=== PATIENT | female | born 1950 ===

== ENCOUNTER 2024-05-17 09:30 | Outpatient (REF) | payer MEDICARE, SELFPAY ==
--- OUTSIDE RECORDS SUMMARY | 2024-05-18 12:35 | XMS_ITS | Clinical Summary ---
Author Organization [facility] Address [address] [place] [address] Care Team Providers Care Converting Supervisor Name Role Phone Washington-Janice Sanon MD Primary Care Provider Allergies No known active allergies Medications Medication Sig Dispensed Refills Start Date End Date Status albuterol (PROVENTIL HFA;VENTOLIN HFA) 108 (90 Base) MCG/ACT inhaler Inhale 2 puffs into the lungs. 0 05/29/2017 Active ALPRAZolam (XANAX) 0.5 MG tablet Take 0.5 mg by mouth 3 (three) times a day as needed. 2 09/08/2018 Active ALPRAZolam (XANAX) 0.5 MG tablet Take 0.25-0.5 mg by mouth. 0 01/03/2013 Active aspirin 81 MG EC tablet Take 81 mg by mouth. 0 Active FLUoxetine (PROzac) 40 MG capsule TAKE ONE CAPSULE BY MOUTH EVERY MORNING 2 09/07/2018 Active furosemide (LASIX) 40 MG tablet Take 40 mg by mouth daily. 1 08/23/2018 Active furosemide (LASIX) 40 MG tablet TAKE 1 TABLET BY MOUTH EVERY DAY 0 08/23/2018 Active insulin NPH (HumuLIN N,NovoLIN N) injection 100 units/mL Inject 26 Units under the skin. 0 Active lisinopril-hydroCHLORO thiazide (PRINZIDE,ZESTORETIC) tablet 10-12.5 mg Take 1 tablet by mouth daily. 1 08/23/2018 Active lovastatin (MEVACOR) 20 MG tablet Take 20 mg by mouth every night at bedtime. 1 09/05/2018 Active metFORMIN (GLUCOPHAGE) tablet 1000 mg TAKE 1 TABLET BY MOUTH TWICE DAILY WITH FOOD 0 05/23/2018 Active Social History Tobacco Use Types Packs/Day Years Used Date Smoking Tobacco: Never Assessed Sex and Gender Information Value Date Recorded Sex Assigned at Not on file Gender Identity Not on file Sexual Orientation Not on file Last Filed Vital Signs Vital Sign Reading Time Taken Comments Blood Pressure - - Pulse - - Temperature - - Respiratory Rate - - Oxygen Saturation - - Inhaled Oxygen Concentration - - Weight 108.9 kg (240 lb) 09/14/2018 2:11 PM EDT Height 157.5 cm (5' 2 ) 09/14/2018 2:11 PM EDT Body Mass Index 43.9 09/14/2018 2:11 PM EDT Plan of Treatment Health Maintenance Due Date Last Done Comments Hepatitis C Screening 1950 COVID-19 Vaccine (#1) 1950 Depression Screening 1961 BMI Counseling 1967 Preventative Health Evaluation 1967 Colon Cancer Screening (Colonoscopy) 1994 Shingrix-Zoster Vaccine (1 of 2) 1999 Fall Risk Assessment 2014 Osteoporosis Screening (DEXA Scan) 2014 DTap / Tdap / Td (2 - Td or Tdap) 08/05/2020 08/05/2010 Influenza Vaccine (#1) 2023 8, 01/12/2016, 12/08/2014, Additional history exists RSV Adult > 60+ Yrs or (1 - 1-dose 75+ series) 01/11/2024 Pneumococcal Vaccine Completed 07/08/2017, 04/23/2015, 04/22/2012 Hepatitis B Vaccines Aged Out No long er eligible based on patient's age to complete this topic RSV Ped < 20 months Aged Out No longe r eligible based on patient's age to complete this topic Care Teams Converting Supervisor Relationship Specialty Start Date End Date [place]-Janice Sanon MD PCP - General Internal Medicine 08/10/17
--- OUTSIDE RECORDS SUMMARY | 2024-05-18 12:35 | XMS_ITS | Clinical Summary ---
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 OTHER SURGICAL HISTORY 08/12/2010 PROCEDURE: HISTORY OTHER; COMMENT: pubovaginal sling with transvaginal tape OTHER SURGICAL HISTORY 1994 PROCEDURE: HISTORY OTHER; COMMENT: left thumb tendonitis surgery COLONOSCOPY 10/24/12 PROCEDURE: HISTORICAL COLONOSCOPY; COMMENT: hemorrhoids; repeat in ten yrs HIP ARTHROPLASTY 11/03/12 PROCEDURE: HISTORICAL HIP REPLACEMENT; COMMENT: right HIP ARTHROPLASTY 01/19/13 PROCEDURE: HISTORICAL HIP REPLACEMENT; COMMENT: left Medical History Medical History Date Comments Mild aortic stenosis 11/27/2013 DX:Mild aor tic stenosis Osteopenia 09/26/2018 DX:Osteopenia Diabetes mellitus with catar act ([facility]) 04/13/2019 DX:Diabetes mellitus with ca taract ([facility]) Diabetes mellitus with prote inuria ([facility]) 11/27/2019 DX:Diabetes mellitus with pr oteinuria ([facility]) Family History Medical History Relation Name Comments Arthritis Brother Diabetes Father Hypertension Mother Alcohol/Drug Uncle Breast cancer Neg Hx Relation Name Status Comments Brother Father Mother Uncle Social History Tobacco Use Types Packs/Day Years Used Date Smoking Tobacco: Never Smokeless Tobacco: Never Alcohol Use Standard Drinks/Week Comments No 0 (1 standard drink = 0.6 oz pur e alcohol) Sex and Gender Information Value Date Recorded Sex Assigned at Not on file Gender Identity Not on file Sexual Orientation Not on file Obstetrics History Last Filed Vital Signs Vital Sign Reading Time Taken Comments Blood Pressure 132/74 04/22/2023 2:05 PM EST Pulse 66 11/20/2022 8:22 AM EDT Temperature - - Respiratory Rate - - Oxygen Saturation - - Inhaled Oxygen Concentration - - Weight 97.5 kg (215 lb) 04/22/2023 2:05 PM EST Height 154.9 cm (5' 1 ) 04/22/2023 2:05 PM EST Body Mass Index 40.62 04/22/2023 2:05 PM EST Plan of Treatment Health Maintenance Due Date Last Done Comments Diabetes: Annual GFR (Glomerular Filtration Rate) 1950 Diabetes: Annual Foot Exam 1959 Diabetes: Annual Retina Eye Exam 1959 Zoster Vaccines (2 of 3) 10/14/2010 08/19/2010 DTaP,Tdap,and Td Vaccines (2 - Td or Tdap) 08/05/2020 08/05/2010 Cholesterol Screening (Lipid Panel) 03/28/2022 Colorectal Cancer Screening: Colonoscopy 03/28/2022 Depression Screening 03/28/2022 Falls Risk Assessment 03/28/2022 Hepatitis C Screening 03/28/2022 Social Influencers of Health Screening 03/28/2022 Diabetes: Annual Urine Albumin-Creatinine Ratio (uACR) 04/01/2022 Diabetes: Blood Sugar Control Test (HGBA1C) 04/01/2022 Hypertension/CHF/CAD Annual BMP Blood Test 04/01/2022 COVID-19 Vaccine ( season) 2023 07/29/2020, 07/08/2020 Influenza Vaccine (#1) 2023 , 12/31/2021, 12/03/2020, Additional history exists RSV Immunization Patients 60+ Years Old (1 - 1-dose 75+ series) 01/11/2024 Osteoporosis Screening (Bone Density Screening) 09/22/2028 09/22/2018 Pneumococcal Vaccine: 65+ Years Completed 07/08/2017, 04/23/2015, 04/22/2012 Breast Cancer Screening Discontinued 09/22/2018 HIB Vaccines Aged Out No longer eligi ble based on patient's age to complete this topic HPV Vaccines Aged Out No longer eligi ble based on patient's age to complete this topic Hepatitis A Vaccines Aged Out No long er eligible based on patient's age to complete this topic Hepatitis B Vaccines Aged Out No long er eligible based on patient's age to complete this topic IPV Vaccines Aged Out No longer eligi ble based on patient's age to complete this topic MMR Vaccines Aged Out No longer eligi ble based on patient's age to complete this topic Meningococcal ACWY Vaccine Aged Out N o longer eligible based on patient's age to complete this topic RSV Immunization Patients Under 20 months Aged Out No longer eligible based on patient's age to complete this topic Varicella Vaccines Aged Out No longer eligible based on patient's age to complete this topic Procedures Procedure Name Priority Date/Time Associated Diagnosis Comments [facility] DEXA AXIAL SKELETON Routine 09/22/2018 2:22 PM EDT Encounter for screening for osteoporosis [facility] SCREENING DIGITAL Routine 09/22/2018 11:45 AM EDT Encounter for screening mammogram for malignant neoplasm of breast from Last 3 Months or Most Recently Relevant to Health Maintenance Results * [facility] DEXA AXIAL SKELETON (09/22/2018 2:22 PM EDT) Anatomical Region Laterality Modality Mammography 09/22/2018 10:3 0 AM EDT Narrative 09/22/2018 2:22 PM EDT [facility] Diagnostic Imaging Department [address] [place] [address] Patient: ??JORGE A GOODEN ?/Age/Sex: 1950 - 68 - F Unit#: ??[id number] ? Location/Status: ??SPDIMAM/REG CLI ? Mnemonic/Ordering Site: ??MAMDEXAAX/SPMAM Ordering Physician: ??FANTA-GEOVANNI MONTAGUE MD [facility]ene Dexa Axial Skeleton - 09/22/18 - 1158 HISTORY: ??The patient is a 68-year-old postmenopausal female with clinical concern for metabolic bone disease. The patient has undergone previous bilateral hip replacement surgery. FINDINGS: ??Dual energy x-ray absorptiometry of the lumbar spine and femurs is performed. The mean bone mineral density at L1-2 is 0.960 gm/cm2 which is 82% of that of young normals and 87% of that of age matched controls. This yields a T- score of -1.7 and a Z-score of -1.2 which is diagnostic of osteopenia. IMPRESSION: Osteopenia. Code 93639 Dictating Physician: ??LILA MONTALVO MD Electronically Signed by: ??LILA MONTALVO MD Dic Date/Time: ??09/22/18 1421 Sign date/Time: ??09/22/18 1422 Procedure Note Lila Montalvo - 04/07/2022 [facility] Diagnostic Imaging Department [address] [place] [address] Patient: SANJAYLAURENJORGE A./Age/Sex: 1950 - 68 - F Unit#: [id number] [facility] Mnemonic/Ordering Site: [facility] Ordering Physician: GEOVANNI ARIAS MD [facility] Dexa Axial Skeleton - 09/22/18 - 1158 HISTORY: The patient is a 68-year-old postmenopausal female withclinical concern for metabolic bone disease. The patient has undergone previousbilateral hip replacement surgery. FINDINGS: Dual energy x-ray absorptiometry of the lumbar spine and femursis performed. The mean bone mineral density at L1-2 is 0.960 gm/cm2 which is82% of that of young normals and 87% of that of age matched controls. This yieldsa T- score of -1.7 and a Z-score of -1.2 which is diagnostic of osteopenia. IMPRESSION: Osteopenia. Code 28552 Dictating Physician: LILA MONTALVO MD Electronically Signed by: LILA MONTALVO MD Dic Date/Time: 09/22/18 1421 Sign date/Time: 09/22/181421 Geovanni Arias MD IMG BI PROCE MANINDERES * [facility] SCREENING DIGITAL (09/22/2018 11:45 AM EDT) Anatomical Region Laterality Modality Mammography 09/22/2018 10:2 8 AM EDT Narrative 09/22/2018 11:45 AM EDT [facility] Diagnostic Imaging Department [address] [place] [address] Patient: ??JORGE A GOODEN ?/Age/Sex: 1950 - 68 - F Unit#: ??[id number] ? Location/Status: ??SPDIMAM/REG CLI ? Mnemonic/Ordering Site: ??DIGSC/SPMAM Ordering Physician: ??GEOVANNI ARIAS MD [facility] Screening Digital - 09/22/18 - 1129 HISTORY: The patient is a 68-year-old female presenting for routine screening mammography. FINDINGS: ??CC and MLO views of both breasts were obtained using full field digital mammography in the [employer]he 2000-D unit. Computer aided detection with the [employer] Range[employer] Second Look 7.2-H was employed. In addition, breast tomosynthesis in MLO projection was performed. The breasts are again seen to be largely fatty-replaced (the breasts are almost entirely fatty, category A density), as also seen on prior studies most recently 02/24/2016 and most remotely 08/09/2014. Multiple bilateral punctate calcifications, most if not all of which are dermal, are again seen. There is no suspicious cluster of microcalcifications, mass, or area of architectural distortion. There is no skin thickening or nipple retraction. IMPRESSION: No mammographic evidence of malignancy. A negative mammogram in the presence of a clinically suspicious palpable abnormality does not preclude the possibility of malignancy or alter the indications for biopsy. BIRADS Code Class 2: ??Benign Finding PQRI CPT II 3342F Code 44489, 39443 PQRI 225 CPT II 7025F Dictating Physician: ??LILA MONTALVO MD Electronically Signed by: ??LILA MONTALVO MD Dic Date/Time: ??09/22/18 1134 Sign date/Time: ??09/22/18 1145 Procedure Note Lila Montalvo - 04/07/2022 [facility] Diagnostic Imaging Department [address] [place] [id number] Patient: JORGE A GOODEN /Age/Sex: 1950 - 68 - F Unit#: [id number] Location/Status: SPDIMAM/REG CLI Mnemonic/Ordering Site: [facility] Ordering Physician: GEOVANNI ARIAS MD Selene Screening Digital - 09/22/18 - 1128 HISTORY: The patient is a 68-year-old female presenting for routinescreening mammography. FINDINGS: CC and MLO views of both breasts were obtained using fullfield digital mammography in the [employer] 2000-D unit. Computer aideddetection with the [employer] Second Look 7.2-H was employed. In addition, breasttomosynthesis in MLO projection was performed. The breasts are again seen to be largely fatty-replaced (the breasts arealmost entirely fatty, category A density), as also seen on prior studies mostrecently 02/24/2016 and most remotely 08/09/2014. Multiple bilateral punctate calcifications, most if not all of which are dermal, are again seen. Thereis no suspicious cluster of microcalcifications, mass, or area ofarchitectural distortion. There is no skin thickening or nipple retraction. IMPRESSION: No mammographic evidence of malignancy. A negative mammogram in the presence of a clinically suspicious palpable abnormality does not preclude the possibility of malignancy or alter the indications for biopsy. BIRADS Code Class 2: Benign Finding PQRI CPT II 3342F Code 63600, 19001 PQRI 225 CPT II 7025F Dictating Physician: LILA MONTALVO MD Electronically Signed by: LILA MONTALVO MD Dic Date/Time: 09/22/18 1134 Sign date/Time: 09/22/18 1145 Geovanni Arias MD IMG BI PROCE MANINDERES from Last 3 Months or Most Recently Relevant to Health Maintenance Advance Directives Documents on File Type Date Recorded Patient Reducing Salon Attendant Expl anation Health Care Decision (hx) 11/15/2012 AD GLYNN DIRECTIVE Health Care Decision (hx) 11/15/2012 AD GLYNN DIRECTIVE Health Care Decision (hx) 11/15/2012 AD GLYNN DIRECTIVE Health Care Decision (hx) 11/15/2012 AD GLYNN DIRECTIVE Health Care Decision (hx) 11/15/2012 AD GLYNN DIRECTIVE Health Care Decision (hx) 11/03/2012 AD GLYNN DIRECTIVE Health Care Decision (hx) 11/03/2012 AD GLYNN DIRECTIVE Health Care Decision (hx) 11/03/2012 AD GLYNN DIRECTIVE Health Care Decision (hx) 11/03/2012 AD GLYNN DIRECTIVE Health Care Decision (hx) 11/03/2012 AD GLYNN DIRECTIVE Care Teams Marketing Team Lead Relationship Specialty Start Date End Date Radha Mabry MD [address] [place] [phone] PCP - General 11/20/22
== END 2024-05-17 09:31 | disposition home or self-care (01) ==
LOC: HO.HOSX 09:30
PROVIDERS: Visit Provider Orthopaedic Surgery
DX: Z13.89 Encounter for screening for other disorder (principal)